=== PATIENT | male | born 1990 | race Caucasian/White ===

== ENCOUNTER 2016-05-07 11:22 | Emergency (ER) | payer OTHER, BC ==
[~2016-05-07] VITALS: Ht 193 cm; Wt 152.6 kg
[2016-05-07 11:28] VITALS: BP 139/99; PULSE 80; RESP 20; TEMP 97.5; O2SAT 95
--- NOTE | 2016-05-07 11:39 | PD ---
Physical Exam Date Seen by Provider: May 07, 2016 Time Seen by Provider: 11:37 Narrative Patient seen in Triage. Presents with Back Pain Flair. States back pain for Months. Denies Fever or Chills. Denies Urinary Symptoms. Vital Signs Stable. Patient awaiting Bed Placement. Data Data Last Documented VS Vital Signs Date Time Temp Pulse Resp B/P Pulse Ox O2 Delivery O2 Flow Rate FiO2 05/07/16 11:28 97.5 80 20 139/99 95 Room Air [facility] Medical Record Reviewed: Yes Supervised Visit with JEMIMA: Yes Scripts No Active Prescriptions or Reported Meds Condition: Stable Josue Jimenez May 07, 2016 11:39
[2016-05-07] MEDS ORDERED: DEXAMETHASONE SOD PHOS 20 MG/5 ML VIAL IM ONE (13:45)
[2016-05-07] MEDS ORDERED: HYDROmorphone HCL PF 1 MG/ML VIAL IM ONE (13:45)
[2016-05-07] MEDS ORDERED: KETOROLAC TROMETHAMINE 60 MG/2 ML (IM) VIAL IM ONE (13:45)
[2016-05-07] MEDS ORDERED: CYCL5TAB PO (14:29)
[2016-05-07] MEDS ORDERED: TRAM50TA PO (14:29)
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
== END 2016-05-07 16:51 | disposition home or self-care (01) ==
LOC: NEPB 11:22
DX: M50.23 Other cervical disc displacement, cervicothoracic region (principal); V89.2XXD Person injured in unspecified motor-vehicle accident, traffic, subsequent encounter
CPT/HCPCS: 96372; 99283; J1100; J1170; J1885